=== PATIENT | female | born 1975 ===

== ENCOUNTER 2021-05-03 17:41 | Emergency (ER) | payer OTHER, SELFPAY ==
[2021-05-03 17:56] VITALS: BP 130/98; PULSE 93; RESP 16; TEMP 36.4; O2SAT 99
--- NOTE | 2021-05-03 18:04 | ED.DENTAL ---
HPI - Dental/Oral General Chief complaint: Dental/Oral Stated complaint: Thrush Time Seen by Provider: 05/03/21 18:04 Source: patient Mode of arrival: ambulatory Limitations: no limitations History of Present Illness HPI Narrative: Mady Pizano is a 45 yo female with a PMH of left hip dysplasia comes to [facility] for treatment of a rash in her mouth that she believes to be thrush that needs to improve before she goes to surgery on May 08. Is having hip replacement on that date at [facility] Related Data Home Medications Medication Instructions Recorded Confirmed No Home Medications 05/03/21 05/03/21 Allergies Allergy/AdvReac Type Severity Reaction Status Date / Time No Known Allergies Allergy Verified 05/03/21 18:12 Review of Systems Review of Systems: Narrative: CONSTITUTIONAL: Denies fever, chills, sweats. EYES: Denies visual changes, redness, discharge. ENT: Denies rhinorrhea, congestion, sore throat, otalgia. CARDIOVASCULAR: Denies chest pain, palpitations, edema. RESPIRATORY: Denies dyspnea, wheezing, cough GASTROINTESTINAL: Denies abdominal pain, nausea, vomiting, diarrhea. GENITOURINARY: Denies dysuria, hematuria, abnormal discharge SKIN: Denies rash or itching. NEUROLOGIC: Denies numbness, or focal weakness. PSYCHIATRIC: Denies anxiety or depression. Rash in mouth is painful and red PMFSH Past Medical History Medical History No acute medical problems Family History Family History (Updated 05/03/21 @ 18:09 by Cherie Tatum CNP) Other No acute medical problems Social History Social History (Updated 05/03/21 @ 18:09 by Cherie Tatum CNP) Smoking status: Former smoker Smoking end date: 01/18/21 Alcohol intake: current Comments At time of signature, I agree with nursing past medical, surgical, social and family history. There is no relevant family history pertinent to the presenting complaint. Blood pressure elevated at this visit because of pain-patient states does not have a diagnosis of high blood pressure Exam Narrative: Exam Narrative: GENERAL: This is a well-nourished, well-developed patient, in mild distress. HEAD: normocephalic, atraumatic. EYES: Sclera clear/white. Vision is grossly intact. EARS: External ears normal. Hearing grossly intact. NOSE: External nose normal without nasal discharge, nares without redness, no rhinorrhea. Mouth: Papular rash on roof of mouth with white coating to tongue THROAT: Mucous membranes moist, NECK: Neck supple, CARDIOVASCULAR: Regular rate and rhythm without murmurs, gallops, or rubs. RESPIRATORY: Clear to auscultation. Breath sounds equal bilaterally. No wheezes, rales, or rhonchi. GASTROINTESTINAL: Abdomen soft, non-tender, SKIN: warm, intact with no suspicious lesions or rash, good texture and turgor. NEURO: awake, alert, and oriented to person, place and time. There were no obvious focal neurologic abnormalities. Steady gait EXTREMITIES: Normal range of motion. Left hip pain with walking range of motion BACK: Nontender without deformity Course Course Emergency Course: [facility] rash in mouth; her surgery on the Started on nystatin swish and swallow Vital Signs Vital signs: Vital Signs Temperature 97.5 F L 05/03/21 17:56 Pulse Rate 93 05/03/21 17:56 Respiratory Rate 16 05/03/21 17:56 Blood Pressure 130/98 H 05/03/21 17:56 Pulse Oximetry 99 05/03/21 17:56 Temperature 97.5 F L 05/03/21 17:56 Pulse Rate 93 05/03/21 17:56 Respiratory Rate 16 05/03/21 17:56 Blood Pressure 130/98 H 05/03/21 17:56 Pulse Oximetry 99 05/03/21 17:56 MDM - Dental/Oral Differential Diagnosis Differential diagnosis: Likely dental caries, aphthous ulcer and other (Thrush) Critical Care Time Critical Care Time Critical Care Time: No Discharge Plan Discharge Clinical Impression: Candidiasis of mo
== END 2021-05-03 18:17 | disposition home or self-care (01) ==
PROVIDERS: Emergency Provider Nurse Practitioner
DX: B37.0 Candidal stomatitis (principal); Z87.891 Personal history of nicotine dependence; M16.0 Bilateral primary osteoarthritis of hip; Q65.89 Other specified congenital deformities of hip
CPT/HCPCS: 99203; G0463

== ENCOUNTER 2022-10-14 11:34 | Emergency (ER) | payer OTHER, SELFPAY ==
[2022-10-14 12:12] VITALS: BP 216/149; PULSE 119; RESP 20; TEMP 36.2; O2SAT 99
--- NOTE | 2022-10-14 13:14 | ED.URI ---
HPI - URI/Sore Throat General Chief Complaint: Upper Respiratory Infection Stated Complaint: Sore Throat Time Seen by Provider: 10/14/22 13:14 Source: patient, RN notes reviewed and old records reviewed Mode of arrival: ambulatory Limitations: no limitations History of Present Illness HPI Narrative: 47-year-old female presents to the [facility] with complaints of a sore throat since last night. Took Tamiflu. Patient states that she always has a headache. It was noted that her blood pressure is extremely elevated, currently not under treatment. Patient denies having a primary care provider to follow up with MD elicited complaint: sore throat Related Data Home Medications Medication Instructions Recorded Confirmed No Home Medications 10/14/22 10/14/22 Allergies Allergy/AdvReac Type Severity Reaction Status Date / Time No Known Allergies Allergy Unverified 10/14/22 12:54 Review of Systems Review of Systems: All systems reviewed & are unremarkable except as noted in HPI and below Constitutional: Constitutional: Reports no additional constitutional complaints Eyes: Eyes: Reports no additional eye complaints ENT: Reports as per HPI and Reports sore throat Cardiovascular: Cardiovascular: Reports no additional cardiovascular complaints, Denies chest pain and Denies dyspnea Respiratory: Respiratory: Reports no additional respiratory complaints, Denies chest congestion, Denies cough and Denies dyspnea Gastrointestinal: Gastrointestinal: Reports no additional gastrointestinal complaints, Denies abdominal pain, Denies nausea and Denies vomiting Musculoskeletal: Musculoskeletal: Reports no additional musculoskeletal complaints Integumentary/Breasts: Skin/Breast: Reports system reviewed and no additional complaints, except as docu Neurologic: Reports system reviewed and no additional complaints, except as documented Psychiatric: Psychiatric: Reports no additional psychiatric complaints Allergic/Immunologic: Allergic/Immunologic: Reports no additional allergic/immunologic complaints PMFSH Past Medical History Medical History No acute medical problems Family History Family History Other No acute medical problems Comments At the time of my signature, I reviewed and agree with the nursing past medical, surgical, social, and family history. There is no relevant family history pertinent to the patient complaint. Exam Const: General: cooperative, comfortable, no acute distress, well developed, alert, ill appearing chronically and well nourished Nutritional Appearance: well nourished Orientation/consciousness: patient oriented x3 Limitations: no limitations HENMT: Head: normal to inspection Ears: hearing grossly normal bilaterally and external ears normal Face/Nose/Sinus: Normal external nose present, Normal nares present, Normal nasal mucous membranes and turbinates present and normal facial exam Face and sinus: normal facial exam Mouth: Yes Normal oral and palatal mucosa present, Yes lip normal and Yes moist mucous membranes Eyes: General: appearance normal, both eyes and all related structures Alignment and Position: alignment normal Periorbital: periorbital findings normal Conjunctivae: conjunctivae normal Pupils: Equal, round and reactive pupils present EOM: EOMs intact bilaterally Neck: Neck: normal visual inspection, full ROM, no lymphadenopathy and no meningeal signs Chest: Chest palpation & inspection: normal inspection of the chest Resp: Effort & Inspection: normal respiratory effort and able to speak in complete sentences Cardio: Rate: regular rate Rhythm: regular rhythm Back/Spine/Pelvis: Cervical Spine: cervical ROM normal Thoracic/Lumbar Spine: No thoracic spinal tenderness Skin: General skin exam: normal color and no rashes or lesions noted Lesions: no lesions Rashes: no rash
--- NOTE | 2022-10-14 13:31 | ECG_ITS ---
Measurements Intervals [place] Rate: 111 P: 27 ID: 121 QRS: 10 QRSD: 77 T: 47 QT: 342 QTc: 465 Interpretive Statements SINUS TACHYCARDIA POSSIBLE LEFT ATRIAL ENLARGEMENT RSR' IN V1 OR V2, PROBABLY NORMAL VARIANT BORDERLINE ECG NO PREVIOUS ECG AVAILABLE FOR COMPARISON Electronically Signed On 10-14-2022 17:01:17 POWER SCREWDRIVER OPERATOR by Bull Shannon M.D.
== END 2022-10-14 13:37 | disposition left against medical advice (07) ==
PROVIDERS: Emergency Provider Nurse Practitioner
DX: I16.0 Hypertensive urgency (principal)
CPT/HCPCS: 93005; 99203; G0463

== ENCOUNTER 2023-10-05 16:28 | Emergency (ER) | payer OTHER, SELFPAY ==
[2023-10-05 16:40] VITALS: BP 138/104; PULSE 101; RESP 16; TEMP 37; O2SAT 99
--- NOTE | 2023-10-05 16:48 | ED.URI ---
HPI - URI/Sore Throat General Chief Complaint: Upper Respiratory Infection Stated Complaint: congestion,vomiting,diarrhea,cough Time Seen by Provider: 10/05/23 16:52 Source: patient and RN notes reviewed Mode of arrival: ambulatory Limitations: no limitations History of Present Illness HPI Narrative: 48-year-old female presents concern for nasal drainage, and congestion, cough. She reports she had an illness about 2 weeks ago and has some lingering cough but she felt worse yesterday. She reports this feels like something different than before. She reports she has been taking Mucinex. MD elicited complaint: cough and sore throat Related Data Allergies Allergy/AdvReac Type Severity Reaction Status Date / Time No Known Allergies Allergy Verified 10/05/23 16:44 Review of Systems Review of Systems: CONSTITUTIONAL: Reports malaise. Denies chills, sweats, or fever. EYES: Denies visual changes, redness, or discharge. ENT: Reports rhinorrhea, congestion. Sinus pain, otalgia and sore throat. CARDIOVASCULAR: Denies chest pain, palpitations, or edema. RESPIRATORY: Reports cough. Denies dyspnea. GASTROINTESTINAL: Denies abdominal pain, nausea, vomiting, diarrhea SKIN: Denies rash or itching. MUSCULOSKELETAL: Denies myalgia. NEUROLOGIC: Denies headache. All systems reviewed & are unremarkable except as noted in HPI and below PMFSH Past Medical History Medical History No acute medical problems Family History Family History Other No acute medical problems Comments At time of signature, agree with nursing past medical, surgical, social and family history. There is no relevant family history pertinent to the presenting complaint Exam Narrative: GENERAL: Nontoxic-appearing, well-nourished, and in no acute distress. HEAD: Normocephalic EYES: PERRLA, conjunctivae clear ENT: Nares clear, clear discharge. Mucous membranes moist. TM pearly boles with sharp light reflex bilaterally; no tragal tenderness. Oropharynx not erythematous without lesions. Tonsils not enlarged and without exudate, no drooling, no hoarseness, no trismus, uvula midline. NECK: Supple. No lymphadenopathy CHEST: Clear to auscultation, breath sounds equal. No wheezing, rhonchi, rales, or stridor. No respiratory distress, speaks in full sentences. Cough noted HEART: Regular rate and rhythm. No murmur heard. SKIN: Warm, dry, no rash. NEURO: Alert and oriented x3. PSYCH: Normal mood and affect Course Course Emergency Course: Patient is aware of diagnosis, understands and agrees to treatment plan. Anticipatory guidance given. Patient agrees to follow-up as directed and is aware of reasons to seek care at the emergency department. Portions of this record may have been created with voice recognition software Level of Care: Express Care Visit Vital Signs Vital signs: Vital Signs Temperature 98.6 F 10/05/23 16:40 Pulse Rate 101 H 10/05/23 16:40 Respiratory Rate 16 10/05/23 16:40 Blood Pressure 138/104 H 10/05/23 16:40 Pulse Oximetry 99 10/05/23 16:40 Oxygen Delivery Room Air 10/05/23 16:40 Temperature 98.6 F 10/05/23 16:40 Pulse Rate 101 H 10/05/23 16:40 Respiratory Rate 16 10/05/23 16:40 Blood Pressure 138/104 H 10/05/23 16:40 Pulse Oximetry 99 10/05/23 16:40 Oxygen Delivery Room Air 10/05/23 16:40 Reviewed. MDM - URI/Sore Throat MDM Narrative Medical decision making narrative: Differential diagnosis considered: Gonzalez virus, strep pharyngitis, allergic rhinitis, upper respiratory tract infection, sinusitis, rhinosinusitis, nasopharyngitis. viral pharyngitis, otitis media, otitis externa, pneumonia, bronchitis, viral cough syndrome, viral syndrome, and influenza. Exam findings show no acute concerns or changes; patient is non-toxic appearing and is in no distress. Patient is appropriate for outpa
== END 2023-10-05 17:16 | disposition home or self-care (01) ==
PROVIDERS: Emergency Provider Nurse Practitioner
DX: B34.9 Viral infection, unspecified (principal); Z20.822 Contact with and (suspected) exposure to COVID-19
CPT/HCPCS: 87426; 87804; 99213; C9803; G0463

== ENCOUNTER 2023-11-19 13:18 | Outpatient (CLI) | payer OTHER, SELFPAY ==
--- NOTE | ~2023-11-19 | US_ITS ---
EXAMINATION: US soft tissue head and neck DATE: 11/19/2023 13:33 INDICATION: Massive neck TECHNIQUE: Multiple grayscale and Doppler ultrasound images of the head and neck were obtained. COMPARISON: Left shoulder MRI 08/03/2012 FINDINGS: There is no abnormal mass in the patient's area of concern in left neck. IMPRESSION: 1. No abnormal mass in the patient's area of concern in left neck. Reviewed, dictated and finalized at location A. STRIAL MACHINE OPERATOR
== END 2023-11-19 13:19 ==
LOC: MICIMG 13:19
PROVIDERS: PCP Physician Assistant; Visit Provider Physician Assistant
DX: R22.1 Localized swelling, mass and lump, neck (principal)
CPT/HCPCS: 76536

== ENCOUNTER 2024-03-08 14:00 | Outpatient (CLI) | payer OTHER, SELFPAY ==
--- NOTE | ~2024-03-08 | MM_ITS ---
EXAMINATION: MM screening rafal BI w dhara HISTORY: Screening TECHNIQUE: Craniocaudal and mediolateral oblique 3-D tomosynthesis images were obtained and synthetic 2-D images were generated. CAD analysis was submitted and interpreted. COMPARISON: No prior mammogram is available for comparison at this institution. BREAST PARENCHYMAL COMPOSITION: Dense: The breasts are heterogeneously dense, which may obscure small masses FINDINGS: There are bilateral breast asymmetries scattered throughout the left breast as well as centered in th e upper outer quadrant of the right breast. There is architectural distortion anteriorly in the upper outer quadrant of the right breast. IMPRESSION: 1. Bilateral breast asymmetries with no focal architectural distortion of the right breast. 2. Additional mammographic views and possible breast ultrasound are recommended. BI-RADS Category 0: Incomplete: Needs additional imaging evaluation. Reviewed, dictated and finalized at location A. IMPRESSION: 1. Bilateral breast asymmetries with no focal architectural distortion of the r ight breast. 2. Additional mammographic views and possible breast ultrasound are recommended . BI-RADS Category 0: Incomplete: Needs additional imaging evaluation.
== END 2024-03-08 14:01 ==
LOC: MICIMG 14:01
PROVIDERS: PCP Physician Assistant; Visit Provider Physician Assistant
DX: Z12.31 Encounter for screening mammogram for malignant neoplasm of breast (principal); N64.89 Other specified disorders of breast
CPT/HCPCS: 77063; 77067

== ENCOUNTER 2024-04-15 11:41 | Emergency (ER) | payer OTHER, SELFPAY ==
--- NOTE | ~2024-04-15 | XR_ITS ---
EXAMINATION: XR chest 2V DATE: 04/15/2024 12:06 INDICATION: Midsternal chest pain. TECHNIQUE: Frontal and lateral views of the chest were obtained. COMPARISON: None. FINDINGS: There is no pneumonia, pleural effusion, or pneumothorax. The heart size is normal. There i s a prominent left pericardial fat pad. IMPRESSION: 1. No acute cardiopulmonary disease. Reviewed, dictated and finalized at location A.
[2024-04-15 11:42] VITALS: BP 129/97; PULSE 89; RESP 16; TEMP 36.7; O2SAT 100
[2024-04-15 11:46] VITALS: BP 129/97; PULSE 83; RESP 13; O2SAT 100
--- NOTE | 2024-04-15 11:46 | ECG_ITS ---
Test Date: 2024-04-15 11:49:37 Measurements Intervals [place] Rate: 84 P: 18 AL: 116 QRS: 37 QRSD: 77 T: 61 QT: 362 QTc: 429 Interpretive Statements SINUS RHYTHM WITH SHORT AL INTERVAL INCOMPLETE RIGHT BUNDLE BRANCH BLOCK No previous ECG available for comparison Electronically Signed On 04-15-2024 13:39:24 CDT by Stacey Cantu M.D.
[2024-04-15 11:48] VITALS: PULSE 82
[2024-04-15 11:58] LABS: Basophils Absolute Auto 0.1 K/mm3 (0.0-0.1); Basophils Percent Auto 0.8 % (0.2-1.2); Eosinophils Absolute Auto 0.4 K/mm3 (0-0.3); Eosinophils Percent Auto 3.6 % (0-4.4); Hemoglobin 12.2 g/dL (12.0-15.0); Immature Granulocyte Absolute 0.04 K/mm3 (0.00-0.031); Immature Granulocyte Percent A 0.4 % (0-0.5); Lymphocytes Absolute Auto 1.96 K/mm3 (0.9-3.2); Lymphocytes Percent Auto 18.8 % (18.3-44.2); Mean Corpuscular HGB Conc 33.9 g/dl (32-36); Mean Corpuscular Hemoglobin 30.2 pg (26-34); Mean Corpuscular Volume 89.1 fl (80-100); Mean Platelet Volume 8.6 fl (7.4-10.4); Monocytes Absolute Auto 0.9 K/mm3 (0.1-0.6); Monocytes Percent Auto 8.1 % (2.6-8.5); Neutrophils Absolute Auto 7.1 K/mm3 (1.3-6.7); Neutrophils Percent Auto 68.3 % (45.5-73.1); Platelet Count Result 249 k/mm3 (150-375); Red Blood Count 4.04 M/mm3 (4.2-5.4); Red Cell Distribution Width 13.4 % (11.5-14.5); White Blood Count 10.5 K/mm3 (4.5-10.0)
[2024-04-15 12:09] LABS: Alanine Aminotransferase 17 U/L (6-35); Albumin Level 4.6 g/dL (3.5-5.1); Alkaline Phosphatase 92 U/L (38-126); Anion Gap 8 mmol/L (4-12); Aspartate Amino Transferase 45 U/L (14-36); Bilirubin,Total 0.6 mg/dL (0.2-1.3); Blood Urea Nitrogen 22 mg/dL (7-17); Calcium 9.8 mg/dL (8.4-10.2); Carbon Dioxide 19 mmol/L (22-30); Chloride 107 mmol/L (98-107); Estimated CRCL calculation 63 ml/min; Estimated Glomerular Filt Rate > 60; Glucose 108 mg/dL (65-110); Lipase 79 U/L (23-300); Potassium 4.7 mmol/L (3.4-5.0); Sodium 134 mmol/L (137-145)
[2024-04-15 12:12] LABS: Prothrombin Time 13.4 Seconds (11.1-14.7)
[2024-04-15 12:13] LABS: Partial Thromboplastin Time 25.4 Seconds (22.3-36.8)
[2024-04-15 12:16] VITALS: BP 142/96; PULSE 83; RESP 13; O2SAT 100
[2024-04-15 12:21] LABS: Troponin I < 0.012 ng/mL (0.000-0.034)
[2024-04-15 12:31] VITALS: BP 133/86; PULSE 81; RESP 13; O2SAT 99
--- NOTE | 2024-04-15 13:52 | ED.CHESTPAIN ---
HPI - Chest Pain General Chief Complaint: Chest Pain Stated Complaint: chest pain Time Seen by Provider: 04/15/24 12:03 History of Present Illness HPI narrative: Patient is a 48-year-old female who presents the emergency department this afternoon due to chest pain radiating to her left arm that started approximately 45 minutes prior to arrival. She denies any history of cardiovascular disease and any previous symptoms in the past. Patient states that while waiting in the emergency department, her pain has subsided and she feels much better. She is currently denying any chest pain, denies any nausea or vomiting denies any shortness of breath. No recent illness or any fevers or chills at home. No additional symptoms or concerns at this time. Related Data Home Medications Medication Instructions Recorded Confirmed No Home Medications 05/03/21 05/03/21 Allergies Allergy/AdvReac Type Severity Reaction Status Date / Time No Known Allergies Allergy Verified 04/15/24 12:54 Review of Systems Review of Systems: All systems are reviewed and are negative unless stated otherwise in the HPI. [facility] Past Medical History Medical History No acute medical problems No acute medical problems Family History Family History Other No acute medical problems Social History Social History Smoking status: Former smoker Smoking end date: 01/18/21 Alcohol intake: current Exam Narrative: General: Alert, awake, afebrile, in no acute distress. HEENT: PERRL, no rhinorrhea, no post nasal drip, oropharynx clear. Cardiovascular: Regular rate and rhythm, no murmurs, rubs or gallops, no peripheral edema. Respiratory: Clear to auscultation bilaterally, no tachypnea, no wheezing, no rhonchi, no rubs, no respiratory distress. Abdomen: Soft, nontender, nondistended, no rebound, no guarding, no peritoneal signs. Musculoskeletal: No joint swelling or deformity, normal muscle tone. Skin: No rashes or petechia, no signs of infection. Neurological: Alert and oriented to person, place, and time. Follows all commands. No focal deficits, speech is clear and fluent. Course Vital Signs Vital signs: Vital Signs Temperature 98.1 F 04/15/24 11:42 Pulse Rate 89 04/15/24 11:42 Respiratory Rate 16 04/15/24 11:42 Blood Pressure 129/97 H 04/15/24 11:42 Pulse Oximetry 100 04/15/24 11:42 Oxygen Delivery Room Air 04/15/24 11:42 Temperature 98.1 F 04/15/24 11:42 Pulse Rate 81 04/15/24 12:31 Respiratory Rate 13 04/15/24 12:31 Blood Pressure 133/86 04/15/24 12:31 Pulse Oximetry 99 04/15/24 12:31 Oxygen Delivery Room Air 04/15/24 11:48 MDM - Chest Pain MDM Narrative Medical decision making narrative: The patient was evaluated by myself in the emergency department. History is obtained from patient who is an independent historian and physical exam was performed. External medical records were reviewed at this time. IV was established and pertinent tests were ordered. EKG was obtained which revealed sinus rhythm at a rate of 84 beats per minute. EKG was independently interpreted by me and is currently pending official cardiology read. Laboratory results obtained revealing no acute process. Initial troponin negative, patient did not want wait for a 2nd troponin. Imaging studies obtained included CXR which was independently interpreted by me revealing no acute process, which is pending final radiology interpretation. Differential diagnosis considerations include acute viral syndrome, infectious process such as pneumonia and acute coronary syndrome although unlikely given patient's low heart score of 2. Comorbidities impacting this visit include hypertension hyperlipidemia. I have evaluated and discussed social determinants o
== END 2024-04-15 14:25 | disposition left against medical advice (07) ==
PROVIDERS: Emergency Medicine; Emergency Provider Emergency Medicine
DX: R07.9 Chest pain, unspecified (principal); Z87.891 Personal history of nicotine dependence
CPT/HCPCS: 36415; 71046; 80053; 83690; 84484; 85025; 85610; 85730; 93005; 99284

== ENCOUNTER 2024-12-29 10:40 | Outpatient (CLI) | payer OTHER, SELFPAY ==
--- NOTE | ~2024-12-29 | XR_ITS ---
AP view of the pelvis and AP and lateral views of the bilateral hips Clinical history: Pain Findings: No acute fracture or dislocation is seen. Osseous alignment is anatomic. Left hip arthropla sty in place. Right hip joint is intact. Soft tissues are unremarkable. Impression: No acute abnormality. Left hip arthroplasty. Reviewed, dictated and finalized at location . Impression: No acute abnormality. Left hip arthroplasty.
--- NOTE | ~2024-12-29 | XR_ITS ---
3 VIEWS LUMBAR SPINE Ordering provider: Chauncey Abreu, History: . Radiculopathy lumbar region . Comparison: None. FINDINGS: VERTEBRAL BODIES: No visible fracture or subluxation. Degenerative changes of the spine. DISK SPACES: Normal. Facet joint disease at the level of L4-L5 and L5-S1. SOFT TISSUES: Normal. Left hip arthroplasty. IMPRESSION: No acute osseous abnormality lumbar spine. Degenerative changes of the spine with facet joint disease at the level of L4-L5 and L5-S1. Reviewed, dictated and finalized at location A. IMPRESSION: No acute osseous abnormality lumbar spine. Degenerative changes of the spine with facet joint disease at the level of L4-L 5 and L5-S1.
--- NOTE | ~2024-12-29 | XR_ITS ---
Left foot Technique: AP and lateral views were obtained. Clinical History: Pain Findings: No acute fracture or dislocation is seen. Osseous alignment is anatomic. Joint spaces are p reserved without erosive or degenerative change. Soft tissues are unremarkable. Impression: Unremarkable left foot radiographs. Reviewed, dictated and finalized at location . Impression: Unremarkable left foot radiographs.
--- NOTE | ~2024-12-29 | XR_ITS ---
Right foot Technique: AP and lateral views were obtained. Clinical History: Pain Findings: No acute fracture or dislocation is seen. Osseous alignment is anatomic. Joint spaces are p reserved without erosive or degenerative change. Soft tissues are unremarkable. Impression: Unremarkable right foot radiographs. Reviewed, dictated and finalized at [facility]. Impression: Unremarkable right foot radiographs.
== END 2024-12-29 10:41 | disposition home or self-care (01) ==
LOC: MICIMG 10:41
PROVIDERS: PCP Internal Medicine; Visit Provider Pain Medicine Interventional Pain Medicine
DX: M51.369 Other intervertebral disc degeneration, lumbar region without mention of lumbar back pain or lower extremity pain (principal); M51.379 Other intervertebral disc degeneration, lumbosacral region without mention of lumbar back pain or lower extremity pain; Z96.642 Presence of left artificial hip joint; M79.672 Pain in left foot; M79.671 Pain in right foot
CPT/HCPCS: 72100; 73521; 73620